=== PATIENT | female | born 1955 | race African-American/Black ===

== ENCOUNTER → 2016-12-10 | Outpatient (CLI) | payer OTHER ==
--- NOTE | 2016-12-10 12:50 | EKG REPORT ---
SEVERITY:- BORDERLINE ECG - SINUS RHYTHM BORDERLINE T ABNORMALITIES, ANTERIOR LEADS : Confirmed by: Alex Ramos MD 10-Dec-2016 12:49:45
[2016-12-10 13:03] LABS: AMORPHOUS SEDIMENT,URINE TRACE /HPF; APPEARANCE,URINE CLOUDY; BILIRUBIN,URINE NEGATIVE (NEGATIVE); GLUCOSE, URINE NEGATIVE (NEGATIVE); KETONES,URINE NEGATIVE (NEGATIVE); LEUKOCYTE ESTERASE,URINE NEGATIVE (NEGATIVE); NITRITE,URINE NEGATIVE (NEGATIVE); PROTEIN,URINE NEGATIVE (NEGATIVE); URINE SPECIFIC GRAVITY 1.013; UROBILINOGEN,URINE NEGATIVE mg/dL (<2.0)
[2016-12-10 13:05] LABS: ABSOLUTE BASOPHILS # (AUTO) 0.1 10^3/uL (0.0-0.2); ABSOLUTE EOSINOPHILS # (AUTO) 0.2 10^3/uL (0.0-0.6); ABSOLUTE LYMPHOCYTES (AUTO) 2.1 10^3/uL (0.5-4.7); ABSOLUTE MONOCYTES (AUTO) 0.4 10^3/uL (0.1-1.4); ABSOLUTE NEUT (AUTO) 2.1 10^3/uL (1.7-8.2); BASOPHILS % (AUTO) 1.1 % (0-2); EOSINOPHILS % (AUTO) 3.1 % (0-6); HEMOGLOBIN 13.1 g/dL (12.0-15.5); HGB HCT DIFFERENCE -0.7; LYMPHOCYTES % (AUTO) 44.4 % (13-45); MEAN CORPUSCULAR HEMOGLOBIN 28.1 pg (27.0-33.4); MEAN CORPUSCULAR HGB CONC 32.7 g/dL (32.0-36.0); MEAN CORPUSCULAR VOLUME 86 fl (80-97); RED BLOOD COUNT 4.67 10^6/uL (3.72-5.28); RED CELL DISTRIBUTION WIDTH 13.9 % (11.5-14.0); SEGMENTED NEUTROPHILS % (AUTO) 43.4 % (42-78); WHITE BLOOD COUNT 4.8 10^3/uL (4.0-10.5)
--- NOTE | 2016-12-10 13:16 | RADIOLOGY REPORT (SQ) ---
EXAM DESCRIPTION: CHEST PA/LATERAL COMPLETED DATE/TIME: 12/10/2016 12:56 pm REASON FOR STUDY: PRE OP COMPARISON: AP chest 11/24/2008 EXAM PARAMETERS: NUMBER OF VIEWS: two views TECHNIQUE: Digital Frontal and Lateral radiographic views of the chest acquired. RADIATION DOSE: NA LIMITATIONS: none FINDINGS: LUNGS AND PLEURA: No opacities, masses or pneumothorax. No pleural effusion. MEDIASTINUM AND HILAR STRUCTURES: No masses or contour abnormalities. HEART AND VASCULAR STRUCTURES: Heart normal size. No evidence for failure. BONES: No acute findings. Diffuse disc space narrowing throughout the thoracic spine. HARDWARE: None in the chest. OTHER: No other significant finding. IMPRESSION: NO SIGNIFICANT RADIOGRAPHIC FINDING IN THE CHEST. TECHNICAL DOCUMENTATION: JOB ID: [id number] [employer]- All Rights Reserved
[2016-12-10 13:22] LABS: ANION GAP 10 (5-19); BLOOD UREA NITROGEN 10 mg/dL (7-20); CALCIUM 9.6 mg/dL (8.4-10.2); CARBON DIOXIDE 29 mmol/L (22-30); CHLORIDE 105 mmol/L (98-107); CREATININE RESULT 0.57 mg/dL (0.52-1.25); GLUCOSE 88 mg/dL (75-110); POTASSIUM 4.3 mmol/L (3.6-5.0); SODIUM 143.6 mmol/L (137-145)
== END ==
LOC: OD 11:49
PROVIDERS: ATTEND Orthopaedic Surgery
DX: Z01.818 Encounter for other preprocedural examination (principal)
CPT/HCPCS: 36415; 71020; 80048; 81001; 85025; 93005; 93010

== ENCOUNTER 2016-12-30 07:58 | Inpatient (IN) | payer OTHER ==
[~2016-12-30 07:58] MED LIST: BUPIVACAINE INJ/PF LIPOSOME/PF 266 MG/20 ML SDV IJ PRN; CEFAZOLIN INJ 1 GM VIAL IV PRN; IBUPROFEN 800 MG/NS 250 ML IV PRN; LACTATED RINGERS 1000 ML IV PRN; LANSOPRAZOLE 15 MG TAB.RAP.DR PO PRN; OXYCODONE HCL SR 10 MG TABLET PO PRN; VANCOMYCIN HCL 1,000 MG in DEXTROSE 5%-WATER 250 ML IV PRN
[2016-12-30] MEDS ORDERED: FENTANYL CITRATE INJ/PF 100 MCG/2 ML AMPUL ONE (08:54)
[2016-12-30] MEDS ORDERED: LIDOCAINE 2% INJ-PF (20 MG/ML) 10 ML AMPUL ONE (08:54)
[2016-12-30] MEDS ORDERED: BUPIVACAINE INJ/PF LIPOSOME/PF 266 MG/20 ML SDV ONE (08:55)
[2016-12-30] MEDS ORDERED: TRANEXAMIC ACID INJ/PF 1,000 MG/10 ML SDV IV ONE ×2 (08:55→11:21)
[2016-12-30] MEDS ORDERED: PROPOFOL INJ 200 MG/20 ML VIAL IV ONE (08:55)
[2016-12-30] MEDS ORDERED: ONDANSETRON HCL INJ/PF 4 MG/2 ML SDV ONE (08:55)
[2016-12-30] MEDS ORDERED: THROMBIN (BOVINE) TOPICAL 20000 UNIT VIAL ONE (08:55)
[2016-12-30] MEDS ORDERED: THROMBIN (BOVINE) 5000 UNIT EPITAXIS KIT ONE (08:55)
[2016-12-30] MEDS ORDERED: MIDAZOLAM 2 MG/2 ML INJ ONE (08:55)
[2016-12-30] MEDS ORDERED: DIPHENHYDRAMINE HCL 50 MG/ML VIAL IV PRN ×2 (10:00→10:44)
[2016-12-30] MEDS ORDERED: FENTANYL CITRATE INJ/PF 100 MCG/2 ML AMPUL IV PRN ×3 (10:00)
[2016-12-30] MEDS ORDERED: MORPHINE SULFATE 10 MG/ML INJ IV PRN ×4 (10:00→10:44)
[2016-12-30] MEDS ORDERED: ONDANSETRON HCL INJ/PF 4 MG/2 ML SDV IV PRN ×2 (10:00→10:44)
[2016-12-30] MEDS ORDERED: MEPERIDINE HCL/PF INJ 25 MG/1 ML DISP.SYRIN IV PRN (10:00)
[2016-12-30] MEDS ORDERED: PROMETHAZINE HCL INJ 25 MG/1 ML VIAL IV PRN ×2 (10:00)
[2016-12-30] MEDS ORDERED: OXYCODONE-ACETAMINOPHEN 5-325 MG TABLET PO PRN ×2 (10:00)
--- NOTE | 2016-12-30 10:39 | Operative Report ---
Operative Report DATE OF SURGERY: 12/30/16 PREOPERATIVE DIAGNOSIS: l knee oa OPERATION: L TKA SURGEON: TOBIN MERCER 1ST PHILATELIC CONSULTANT: VIVIENNE TATUM ANESTHESIA: Spinal TISSUE REMOVED OR ALTERED: bone to pathology ESTIMATED BLOOD LOSS: 100 PROCEDURE: Implants used: Femur: Dre triathlon #5 PS femur Tibia: #4 tibia Tibial liner: 11 mm PS insert Patella: 32 mm oval patella Procedure with the patient supine on the operating table the left the limb is prepped and draped in a sterile fashion. The limb was elevated for exsanguination and the tourniquet inflated to 280 torr. A standard midline median parapatellar approach the knee is taken. Access is gained to the femoral canal through the intercondylar notch. Intramedullary alignment instrumentation used to resect 10 mm of distal femur in 5 of valgus. Sizing guide indicated a size 5 femur. Appropriate cutting jig is then used to fashion anterior posterior and chamfer cuts. Posterior stabilized box cutting guide is applied in the posterior stabilized box is cut and removed. A trial reduction femurs performed and this is judged to be adequate. Attention was next turned to the tibia. Using an extra medullary alignment system 9 millimeters was resected off the lateral tibial plateau. This is sized to a size 4 tibia. A trial reduction was now performed with a 5 femur and a for tibia using a 11 millimeters spacer. It is full extension and central patellofemoral tracking. The articular surface the patella was next resected using an oscillating saw. All trial implants were removed. Polymethylmethacrylate is mixed and used to cement the above implants in place. On adequate curing the cement excess cement was removed the tourniquet was deflated hemostasis obtained the wound is then closed in layers using interrupted Vicryl followed by david. A sterile compressive dressing was applied and the patient returned to recovery room in satisfactory condition.
[2016-12-30] MEDS ORDERED: MAG HYDROX/AL HYDROX/SIMETH SUSP 30 ML UDCUP PO PRN (10:44)
[2016-12-30] MEDS ORDERED: MORPHINE SULFATE 10 MG/ML INJ IM PRN (10:44)
[2016-12-30] MEDS ORDERED: ZOLPIDEM TARTRATE 5 MG TABLET PO PRN (10:44)
[2016-12-30] MEDS ORDERED: ONDANSETRON 4 MG TAB.RAPDIS PO PRN (10:44)
--- NOTE | 2016-12-30 12:14 | RADIOLOGY REPORT (SQ) ---
EXAM DESCRIPTION: KNEE LEFT 2 VIEWS COMPLETED DATE/TIME: 12/30/2016 11:47 am REASON FOR STUDY: Post OP -Long Cassette in PACU M17.12 UNILATERAL PRIMARY OSTEOARTHRITIS, LEFT KNE E COMPARISON: None. NUMBER OF VIEWS: Portable AP and lateral left knee films TECHNIQUE: Digital radiographic images of the left knee post-procedure. LIMITATIONS: None. FINDINGS: BONES: No worrisome or unexpected findings post-procedure. DEVICE: Post total knee replacement with patellar resurfacing. SOFT TISSUES: No worrisome findings. Expected postoperative soft tissue changes. IMPRESSION: SATISFACTORY POSTOPERATIVE LEFT KNEE. TECHNICAL DOCUMENTATION: JOB ID: [id number] [employer]- All Rights Reserved
[2016-12-30] MEDS: OXYCODONE HCL IR 5 MG TABLET PO PRN (13:56)
[2016-12-30] MEDS ORDERED: ACETAMINOPHEN 100 ML IV ONE (16:44)
[2016-12-30] MEDS: IBUPROFEN 800 MG in NORMAL SALINE 250 ML IV SCH (19:07)
[2016-12-30] MEDS ORDERED: ACETAMINOPHEN 325 MG TABLET PO PRN (20:00)
[2016-12-30] MEDS ORDERED: DIPHENHYDRAMINE HCL 25 MG CAPSULE PO PRN (20:37)
[2016-12-30] MEDS: RIVAROXABAN 10 MG TABLET PO SCH (21:33)
[2016-12-30] MEDS: PREGABALIN 75 MG CAPSULE PO SCH (21:33)
[2016-12-30] MEDS: OXYCODONE HCL SR 10 MG TABLET PO SCH (21:35)
[2016-12-30] MEDS ORDERED: VANCOMYCIN HCL 1,000 MG in DEXTROSE 5%-WATER 250 ML IV ONE (23:00)
[2016-12-31] MEDS: IBUPROFEN 800 MG in NORMAL SALINE 250 ML IV SCH ×3 (01:52→17:15)
[2016-12-31] MEDS: LANSOPRAZOLE 30 MG TAB.RAP.DR PO SCH (05:32)
[2016-12-31 05:49] LABS: HEMATOCRIT 37.1 % (36.0-47.0); HEMOGLOBIN 12.2 g/dL (12.0-15.5); HGB HCT DIFFERENCE -0.5; MEAN CORPUSCULAR HGB CONC 32.9 g/dL (32.0-36.0); MEAN CORPUSCULAR VOLUME 85 fl (80-97); RED BLOOD COUNT 4.37 10^6/uL (3.72-5.28); RED CELL DISTRIBUTION WIDTH 13.9 % (11.5-14.0); WHITE BLOOD COUNT 9.3 10^3/uL (4.0-10.5)
[2016-12-31 06:06] LABS: ANION GAP 8 (5-19); BLOOD UREA NITROGEN 9 mg/dL (7-20); CALCIUM 8.9 mg/dL (8.4-10.2); CARBON DIOXIDE 27 mmol/L (22-30); CHLORIDE 103 mmol/L (98-107); CREATININE RESULT 0.64 mg/dL (0.52-1.25); GLUCOSE 110 mg/dL (75-110); POTASSIUM 4.2 mmol/L (3.6-5.0); SODIUM 137.5 mmol/L (137-145)
--- NOTE | 2016-12-31 06:54 | PDOC PROGRESS REPORT ---
Subjective Progress Note for:: 12/31/16 Subjective:: Patient with minor complaints of discomfort Physical Exam Vital Signs: Temp Pulse Resp BP Pulse Ox 36.5 C 73 16 133/73 H 99 12/31/16 00:01 12/31/16 00:01 12/31/16 00:01 12/31/16 00:01 12/31/16 00:01 Intake & Output 12/29/16 12/30/16 12/31/16 06:59 06:59 06:59 Intake Total 4896 Output Total 2450 Balance 2446 General appearance: PRESENT: no acute distress Head exam: PRESENT: normocephalic Eye exam: PRESENT: EOMI Respiratory exam: PRESENT: unlabored Cardiovascular exam: PRESENT: RRR Pulses: PRESENT: +1 pedal pulses bilateral GI/Abdominal exam: PRESENT: soft Rectal exam: PRESENT: deferred Extremities exam: PRESENT: other - Left knee dressing clean dry and intact. Distal neurovascular examination is intact. Minimal pedal edema. Neurological exam: PRESENT: alert, awake, oriented to person, oriented to place , oriented to time, oriented to situation. ABSENT: motor sensory deficit Psychiatric exam: PRESENT: appropriate affect, normal mood. ABSENT: homicidal ideation, suicidal ideation Skin exam: PRESENT: dry, intact, warm. ABSENT: cyanosis, rash Results Laboratory Results: 12/31/16 05:12 12/31/16 05:12 12/30/16 12/31/16 12/31/16 08:40 05:12 05:12 WBC 9.3 RBC 4.37 Hgb 12.2 Hct 37.1 MCV 85 MCH 28.0 MCHC 32.9 RDW 13.9 Plt Count 209 Sodium 137.5 Potassium 3.7 4.2 Chloride 103 Carbon Dioxide 27 Anion Gap 8 BUN 9 Creatinine 0.64 Est GFR ( Amer) > 60 Est GFR (Non-Af Amer) > 60 Glucose 110 Calcium 8.9 Impressions: Knee X-Ray 12/30/16 10:46 IMPRESSION: SATISFACTORY POSTOPERATIVE LEFT KNEE. Status: Imported from PACS Assessment & Plan - Diagnosis (1) Arthritis of knee, left Is this a current diagnosis for this admission?: Yes Plan: 61-year-old black female postop day 1 from left knee arthroplasty patient made minor progress with physical therapy yesterday. Anticipate further progress with physical therapy today with subsequent discharge home tomorrow with home health nursing and home health physical therapy. - Time Time Spent with patient: 15-24 minutes Anticipated discharge: Home with Homehealth Within: within 24 hours
[2016-12-31] MEDS: OXYCODONE HCL IR 5 MG TABLET PO PRN (07:36)
[2016-12-31] MEDS: HYDROCHLOROTHIAZIDE 25 MG TABLET PO SCH (10:00)
[2016-12-31] MEDS ORDERED: HYDROCHLOROTHIAZIDE 25 MG TABLET PO SCH (10:00)
[2016-12-31] MEDS ORDERED: POTASSIUM CHLORIDE 10 MEQ TABLET.SA PO SCH (10:00)
[2016-12-31] MEDS ORDERED: CHOLECALCIFEROL PO SCH (10:00)
[2016-12-31] MEDS: POTASSIUM CHLORIDE 10 MEQ TABLET.SA PO SCH (10:01)
[2016-12-31] MEDS: OXYCODONE HCL SR 10 MG TABLET PO SCH ×2 (10:01→22:41)
[2016-12-31] MEDS: CHOLECALCIFEROL (D3) 1,000 UNIT TABLET PO SCH (10:02)
[2016-12-31] MEDS: PREGABALIN 75 MG CAPSULE PO SCH ×2 (10:03→22:42)
[2016-12-31] MEDS: RIVAROXABAN 10 MG TABLET PO SCH (22:41)
[2017-01-01] MEDS: IBUPROFEN 800 MG in NORMAL SALINE 250 ML IV SCH ×2 (01:58→09:24)
[2017-01-01 05:39] LABS: HEMOGLOBIN 11.4 g/dL (12.0-15.5); HGB HCT DIFFERENCE 0.2; MEAN CORPUSCULAR HEMOGLOBIN 28.2 pg (27.0-33.4); MEAN CORPUSCULAR HGB CONC 33.6 g/dL (32.0-36.0); MEAN CORPUSCULAR VOLUME 84 fl (80-97); RED BLOOD COUNT 4.05 10^6/uL (3.72-5.28); WHITE BLOOD COUNT 10.1 10^3/uL (4.0-10.5)
[2017-01-01] MEDS: LANSOPRAZOLE 30 MG TAB.RAP.DR PO SCH (06:17)
--- NOTE | 2017-01-01 07:14 | PDOC DISCHARGE SUMMARY ---
General - Admit/Disc Date/PCP Admission Date/Primary Care Provider: 12/30/16 07:58 SANTA LAMMATTHEW Discharge Date: 01/01/17 - Discharge Diagnosis (1) Arthritis of knee, left Is this a current diagnosis for this admission?: Yes - Additional Information Resuscitation Status: Full Code Discharge Diet: As Tolerated, Regular Discharge Activity: Activity As Tolerated, Balance Activity w/Rest, No Driving, No tub bath Home Medications: Cholecalciferol (Vitamin D3) [Vitamin D3 5000 unit Capsule] 1 cap PO DAILY 12/17 Hydrochlorothiazide 1 tab PO DAILY 12/17/16 Potassium Chloride [Klor-Con 10 Meq Tablet.sa] 1 tab PO DAILY 12/17/16 Oxycodone HCl [Oxy-Ir 5 mg Tablet] 5 mg PO Q6HP PRN tablet 01/01/17 Rivaroxaban [Xarelto 10 mg Tablet] 10 mg PO QHS tablet 01/01/17 History of Present Illness History of Present Illness: ROSIE LAMA is a 61 year old female with progressive left knee pain and functional 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 Patient is admitted for elective left knee arthroplasty. Hospital Course Hospital Course: Patient is admitted through the operating room she undergoes uncomplicated left knee arthroplasty. She is returned to the floor in satisfactory condition sure. She makes excellent progress with physical therapy. Dressing is changed on postop day 2. Wound is clean dry and intact. Minimal pedal edema. Physical Exam Vital Signs: Temp Pulse Resp BP Pulse Ox 37.6 C 80 17 146/70 H 97 12/31/16 23:55 12/31/16 23:55 12/31/16 23:55 12/31/16 23:55 12/31/16 23:55 Intake & Output 12/31/16 01/01/17 01/02/17 06:59 06:59 06:59 Intake Total 4896 1550 Output Total 2450 Balance 2446 1550 General appearance: PRESENT: no acute distress Head exam: PRESENT: normocephalic Respiratory exam: PRESENT: unlabored Cardiovascular exam: PRESENT: RRR Pulses: PRESENT: +1 pedal pulses bilateral Vascular exam: PRESENT: normal capillary refill GI/Abdominal exam: PRESENT: soft Rectal exam: PRESENT: deferred Extremities exam: PRESENT: other - Left lower extremity dressing is changed. Wound is well approximated clean dry and intact. Neurological exam: PRESENT: alert, awake, oriented to person, oriented to place , oriented to time, oriented to situation. ABSENT: motor sensory deficit Psychiatric exam: PRESENT: appropriate affect, normal mood. ABSENT: homicidal ideation, suicidal ideation Skin exam: PRESENT: abrasion Results Laboratory Results: 01/01/17 05:17 12/31/16 05:12 01/01/17 05:17 WBC 10.1 RBC 4.05 Hgb 11.4 L Hct 34.0 L MCV 84 MCH 28.2 MCHC 33.6 RDW 14.0 Plt Count 187 Impressions: Knee X-Ray 12/30/16 10:46 IMPRESSION: SATISFACTORY POSTOPERATIVE LEFT KNEE. Status: Imported from PACS Plan Discharge Plan: Patient to be discharged home with home health nursing, home health physical therapy, wheeled walker, bedside commode. Follow-up will be with Dr. Goldstein in the [facility] for surgery in 2 weeks for staple removal. Time Spent: Less than 30 Minutes
[2017-01-01] MEDS: HYDROCHLOROTHIAZIDE 25 MG TABLET PO SCH (09:23)
[2017-01-01] MEDS: CHOLECALCIFEROL (D3) 1,000 UNIT TABLET PO SCH (09:24)
[2017-01-01] MEDS: POTASSIUM CHLORIDE 10 MEQ TABLET.SA PO SCH (09:24)
[2017-01-01] MEDS: PREGABALIN 75 MG CAPSULE PO SCH (09:24)
[2017-01-01 12:41] VITALS: BP 130/86
== END 2017-01-01 14:23 | disposition home or self-care (01) | DRG 470 ==
LOC: INOR 07:58 → 4S 11:51
PROVIDERS: ADMIT Orthopaedic Surgery; ATTEND Orthopaedic Surgery
PROC: 0SRD0J9 Replacement of Left Knee Joint with Synthetic Substitute, Cemented, Open Approach (ICD-10-PCS; principal; 2016-12-30 10:00)
DX: M17.12 Unilateral primary osteoarthritis, left knee (principal); Z91.013 Allergy to seafood; Z91.040 Latex allergy status
CPT/HCPCS: 01402; 36415; 80048; 84132; 85027; 88305; 88311; 94799; C9290; J0131; J0690; J1741; J2250; J2270; J2405; J2704; J3010; J3370; J3490; J7050; J7060

== ENCOUNTER → 2019-03-15 | Outpatient (CLI) | payer OTHER ==
[2019-03-15 11:14] LABS: ABSOLUTE EOSINOPHILS # (AUTO) 0.1 10^3/uL (0.0-0.6); ABSOLUTE LYMPHOCYTES (AUTO) 1.8 10^3/uL (0.5-4.7); ABSOLUTE MONOCYTES (AUTO) 0.4 10^3/uL (0.1-1.4); ABSOLUTE NEUT (AUTO) 2.3 10^3/uL (1.7-8.2); BASOPHILS % (AUTO) 0.8 % (0-2); EOSINOPHILS % (AUTO) 2.6 % (0-6); HEMATOCRIT 39.2 % (36.0-47.0); LYMPHOCYTES % (AUTO) 38.5 % (13-45); MEAN CORPUSCULAR HEMOGLOBIN 27.9 pg (27.0-33.4); MEAN CORPUSCULAR HGB CONC 33.1 g/dL (32.0-36.0); MEAN CORPUSCULAR VOLUME 84 fl (80-97); MONOCYTES % (AUTO) 8.2 % (3-13); PLATELET COUNT 248 10^3/uL (150-450); RED BLOOD COUNT 4.65 10^6/uL (3.72-5.28); RED CELL DISTRIBUTION WIDTH 13.4 % (11.5-14.0); SEGMENTED NEUTROPHILS % (AUTO) 49.9 % (42-78); TOTAL CELLS COUNTED % (AUTO) 100 %; WHITE BLOOD COUNT 4.7 10^3/uL (4.0-10.5)
[2019-03-15 11:23] LABS: INTERNATIONAL RATION (INR) 1.04; PROTHROMBIN TIME 13.6 SEC (11.4-15.4)
[2019-03-15 11:24] LABS: PARTIAL THROMBOPLASTIN TIME 36.4 SEC (23.5-35.8)
[2019-03-15 11:42] LABS: ALBUMIN 4.3 g/dL (3.5-5.0); ALKALINE PHOSPHATASE 69 U/L (38-126); ANION GAP 8 (5-19); ASPARTATE AMINO TRANSFERASE 23 U/L (14-36); BILIRUBIN,DIRECT 0.1 mg/dL (0.0-0.4); BILIRUBIN,TOTAL 0.5 mg/dL (0.2-1.3); BLOOD UREA NITROGEN 11 mg/dL (7-20); CALCIUM 9.6 mg/dL (8.4-10.2); CARBON DIOXIDE 32 mmol/L (22-30); CHLORIDE 102 mmol/L (98-107); GLUCOSE 79 mg/dL (75-110); POTASSIUM 4.2 mmol/L (3.6-5.0); TOTAL PROTEIN 7.6 g/dL (6.3-8.2)
--- NOTE | 2019-03-15 13:57 | EKG REPORT ---
SEVERITY:- ABNORMAL ECG - SINUS RHYTHM LEFT VENTRICULAR HYPERTROPHY BORDERLINE T ABNORMALITIES, INFERIOR LEADS : Confirmed by: Alex Ramos MD 15-Mar-2019 13:57:01
== END ==
LOC: OD 10:26
PROVIDERS: ATTEND Podiatrist
DX: Z01.810 Encounter for preprocedural cardiovascular examination (principal); Z01.811 Encounter for preprocedural respiratory examination; Z01.812 Encounter for preprocedural laboratory examination
CPT/HCPCS: 36415; 80053; 85025; 85610; 85730; 93005; 93010